=== PATIENT | male | born 1990 | race African-American/Black ===

== ENCOUNTER 2016-10-17 16:54 | Emergency (ER) | payer SELFPAY ==
[~2016-10-17] VITALS: Ht 193 cm; Wt 90.7 kg
[2016-10-17] MEDS ORDERED: IV NORMAL SALINE 1000ML BAG 1,000 ML IV ONE (17:30)
--- NOTE | 2016-10-17 17:31 | PHYS DOC ---
Past Medical History Past Medical History: No Pertinent History Past Surgical History: No Surgical History Alcohol Use: Occasionally Drug Use: None Adult General Chief Complaint Chief Complaint: DIZZY/LIGHT HEADED [facility] HPI Patient is a 26 year old male that presents to the emergency department with complaint of dizziness. 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 He states he took multiple breaks in the cool area and did not have relief of symptoms. He states that he awakened this morning and the dizziness persisted. Upon arrival to the emergency department he states that the dizziness is decreased but is still present. He denies headache, blurred vision, double vision, vomiting although does complain of mild nausea with the dizziness. He denies upper respiratory symptoms. He denies chest pain or palpitations, he denies muscle cramps. Patient does report that the day prior to the onset of his dizziness he drank approximately 8 beers. He does state that he drinks daily and has a history of alcohol-induced gastritis. He denies abdominal pain, dark tarry stools or blood per rectum. Review of Systems Review of Systems Constitutional: Denies fever or chills [] Eyes: Denies change in visual acuity, redness, or eye pain [] HENT: Denies nasal congestion or sore throat, denies tinnitus, denies neck pain [] Respiratory: Denies cough or shortness of breath [] Cardiovascular: No additional information not addressed in HPI [] GI: Denies abdominal pain, bloody stools or diarrhea, complains of nausea without vomiting [] : Denies dysuria or hematuria [] Musculoskeletal: Denies back pain or joint pain [] Integument: Denies rash or skin lesions [] Neurologic: Denies headache, focal weakness or sensory changes, complaining of dizziness [] Endocrine: Denies polyuria or polydipsia [] Current Medications Current Medications Current Medications Medications (Trade) Dose Ordered Sig/Arlene Start Time Stop Time Status Last Admin Dose Admin Sodium Chloride 1,000 ml @ 1,000 mls/hr 1X ONCE 10/17/16 17:30 10/17/16 18:29 10/17/16 17:47 1,000 MLS/HR Allergies Allergies Allergies Coded Allergies Type Severity Reaction Last Updated Verified No Known Drug Allergies 10/17/16 No Physical Exam Physical Exam Constitutional: Well developed, well nourished, no acute distress, non-toxic appearance. [] HENT: Normocephalic, atraumatic, right external canal with cerumen impaction, left tympanic membrane pearly [place] without effusion, oropharynx moist, no oral exudates, nose normal. [] Eyes: PERRLA, EOMI, conjunctiva normal, no discharge, funduscopic exam benign. [ ] Neck: Normal range of motion, no tenderness, supple, no stridor, no nuchal rigidity. [] Cardiovascular:Heart rate regular rhythm, no murmur, no lower extremity edema [] Lungs & Thorax: Bilateral breath sounds clear to auscultation [] Abdomen: Bowel sounds normal, soft, no tenderness, no masses, no pulsatile masses. [] Skin: Warm, dry, no erythema, no rash. [] Back: No tenderness, no CVA tenderness. [] Extremities: No tenderness, no cyanosis, no clubbing, ROM intact, no edema. [] Neurologic: Alert and oriented X 3, normal motor function, normal sensory function, no focal deficits noted, cranial nerves II through XII grossly intact [] Psychologic: Affect normal, judgement normal, mood normal. [] Current Patient Data Vital Signs Vital Signs Date Time Temp Pulse Resp B/P (MAP) Pulse Ox O2 Delivery O2 Flow Rate FiO2 10/17/16 18:08 62 16 145/86 (105) 100 Room Air 10/17/16 17:19 98.0 98.0 Lab Values Laboratory Tests Test 10/17/16 17:40 White Blood Count 3.8 x10^3/uL (4.0-11.0) L Red Blood Count 4.75 x10^6/uL (4.30-5.70) Hemoglobin 14.0 g/dL (13.0-17.5) Hematocrit 40.6 % (39.0-53.0) Mean Corpuscular Volume 86 fL (79-100) Mean Corpuscular Hemoglobin 29 pg (25-35) Mean Corpuscular Hemoglobin Concent 34 g/dL (31-37) Red Cell Distribution Width 13.7 % (11.5-14.5) Platelet Count 249 x10^3/uL (140-400) Neutrophils (%) (Auto) 51 % (31-73) Lymphocytes (%) (Auto) 36 % (24-48) Monocytes (%) (Auto) 9 % (0-9) Eosinophils (%) (Auto) 4 % (0-3) H Basophils (%) (Auto) 1 % (0-3) Neutrophils # (Auto) 1.9 x10^3uL (1.8-7.7) Lymphocytes # (Auto) 1.4 x10^3/uL (1.0-4.8) Monocytes # (Auto) 0.3 x10^3/uL (0.0-1.1) Eosinophils # (Auto) 0.1 x10^3/uL (0.0-0.7) Basophils # (Auto) 0.0 x10^3/uL (0.0-0.2) Urine Collection Type Unknown Urine Color Straw Urine Clarity Clear Urine pH 7.0 Urine Specific [place] 1.010 Urine Protein Negative mg/dL (NEG-TRACE) Urine Glucose (UA) Negative mg/dL (NEG) Urine Ketones (Stick) Negative mg/dL (NEG) Urine Blood Negative (NEG) Urine Nitrite Negative (NEG) Urine Bilirubin Negative (NEG) Urine Urobilinogen Dipstick 0.2 mg/dL (0.2 mg/dL) Urine Leukocyte Esterase Negative (NEG) Urine RBC 0 /HPF (0-2) Urine WBC Rare /HPF (0-4) Urine Squamous Epithelial Cells Occ /LPF Urine Bacteria 0 /HPF (0-FEW) Sodium Level 143 mmol/L (136-145) Potassium Level 4.0 mmol/L (3.5-5.1) Chloride Level 106 mmol/L (98-107) Carbon Dioxide Level 29 mmol/L (21-32) Anion Gap 8 (6-14) Blood Urea Nitrogen 11 mg/dL (8-26) Creatinine 1.0 mg/dL (0.7-1.3) Estimated GFR (Cockcroft-Gault) 110.2 BUN/Creatinine Ratio 11 (6-20) Glucose Level 100 mg/dL (70-99) H Calcium Level 8.6 mg/dL (8.5-10.1) Total Bilirubin 0.5 mg/dL (0.2-1.0) Aspartate Amino Transferase (AST) 20 U/L (15-37) Alanine Aminotransferase (ALT) 34 U/L (16-63) Alkaline Phosphatase 68 U/L (46-116) Creatine Kinase 288 U/L (39-308) Total Protein 7.2 g/dL (6.4-8.2) Albumin 4.1 g/dL (3.4-5.0) Albumin/Globulin Ratio 1.3 (1.0-1.7) Laboratory Tests 10/17/16 17:40 Laboratory Tests 10/17/16 17:40 EKG EKG 1755: EKG reviewed by Dr. Vogt, no acute changes, non-STEMI. [] Radiology/Procedures Radiology/Procedures [] Course & Med Decision Making Course & Med Decision Making Pertinent Labs and Imaging studies reviewed. (See chart for details) 1810: The patient is resting comfortably and feels better, is alert and in no distress. Repeat examination is unremarkable and benign. Patient's repeat blood pressure 142/86. I spoke with the patient and his mother. I've explained the patient's condition , diagnosis and treatment plan based on the information available to me at this time. I've answered the patient and his mother's questions and a dressing concerns. The patient and his mother have as good an understanding of the patient's diagnosis, condition and treatment plan as can be expected at this point. Vital signs have been stable. The patient's condition is stable and appropriate for discharge from the emergency department. Patient will pursue further outpatient evaluation with his primary care physician or other designated or consulting physician as outlined in the discharge instructions. The patient and his mother are agreeable to this plan of care and follow-up instructions and explained in detail. The patient and his mother have received these instructions in written format and have expressed an understanding of the discharge instructions. The patient and his mother are aware that any significant change in condition or worsening of symptoms should prompt immediate return to this closest emergency department or call to 911. [] Dragon Disclaimer Dragon Disclaimer This electronic medical record was generated, in whole or in part, using a voice recognition dictation system. Departure Departure Impression: Primary Impression: Dehydration, mild Disposition: 01 HOME, SELF-CARE Condition: STABLE Referrals: NO PCP (PCP) Patient Instructions: Dehydration, Adult Additional Instructions: Increase water and Gatorade consumption. Decrease alcohol intake. TOM PENA APRN Oct 17, 2016 17:31
[2016-10-17 17:53] LABS: BASO % 1 % (0-3); EOS % 4 % (0-3); HEMATOCRIT 40.6 % (39.0-53.0); LYMPH # 1.4 x10^3/uL (1.0-4.8); LYMPH % 36 % (24-48); MEAN CORPUSCULAR HEMOGLOBIN 29 pg (25-35); MEAN CORPUSCULAR HGB CONC 34 g/dL (31-37); MEAN CORPUSCULAR VOLUME 86 fL (79-100); MONO % 9 % (0-9); NEUT % 51 % (31-73); PLATELET COUNT 249 x10^3/uL (140-400); RED BLOOD COUNT 4.75 x10^6/uL (4.30-5.70); RED CELL DISTRIBUTION WIDTH 13.7 % (11.5-14.5); WHITE BLOOD COUNT 3.8 x10^3/uL (4.0-11.0)
[2016-10-17 17:56] LABS: BILIRUBIN,URINE NEGATIVE (NEG); GLUCOSE,URINE NEGATIVE (NEG); NITRITE,URINE NEGATIVE (NEG); PROTEIN,URINE NEGATIVE (NEG-TRACE); UROBILINOGEN,URINE 0.2 mg/dL (0.2 mg/dL)
[2016-10-17 18:03] LABS: BACTERIA,URINE 0 /HPF (0-FEW); RBC,URINE 0 /HPF (0-2); SQUAMOUS EPITHELIAL CELL,UR OCC /LPF; WBC,URINE RARE /HPF (0-4)
[2016-10-17 18:08] LABS: CALCIUM 8.6 mg/dL (8.5-10.1); GFR 110.2
[2016-10-17 18:15] LABS: ALBUMIN 4.1 g/dL (3.4-5.0); ALBUMIN/GLOBULIN RATIO 1.3 (1.0-1.7); TOTAL BILIRUBIN 0.5 mg/dL (0.2-1.0); TOTAL PROTEIN 7.2 g/dL (6.4-8.2)
[2016-10-17 18:30] VITALS: BP 140/76
--- NOTE | 2016-10-18 06:24 | EKG ---
[facility] [address] [place] [id number] Test Date: 2016-10-17 Test Time: 17:37:42 Pat Name: WAQAS FERNANDEZ Department: Room: Gender: M Tie Hacker: : 1990 Requested By: TOM PENA Order Number: [id number] Reading MD: Measurements Intervals [place] Rate: 58 P: 0 NC: 144 QRS: 72 QRSD: 92 T: 47 QT: 364 QTc: 360 Interpretive Statements SINUS RHYTHM NO SPECIFIC ECG ABNORMALITIES RI6.01 No previous ECG available for comparison
== END 2016-10-17 18:35 | disposition home or self-care (01) ==
LOC: ER 16:54
DX: E86.0 Dehydration (principal); K29.20 Alcoholic gastritis without bleeding; R42 Dizziness and giddiness; Z87.19 Personal history of other diseases of the digestive system
CPT/HCPCS: 36415; 80053; 81001; 82550; 85027; 93005; 96360; 99285; C1887; J7030